=== PATIENT | male | born 1995 | race Two or more races ===

== ENCOUNTER 2025-08-11 16:20 | Emergency (ER) | payer BC, SELFPAY ==
[2025-08-11 16:21] VITALS: BMI 28.8
[2025-08-11 17:19] VITALS: BP 161/95; PULSE 49; RESP 17; TEMP 36.8; O2SAT 99
--- NOTE | 2025-08-11 17:36 | PD.EDRME ---
Rapid Medical Screening Exam E Arrival date/time: 08/11/25 16:20 This is a 29-year-old male who comes into the emergency room with complaints of nausea, vomiting and abdominal pain that started yesterday. Patient states that he eventually got food yesterday and since then he has been vomiting and having epigastric pain. Patient denies alcohol or drug use. Patient reports history of GERD I have greeted and performed a focused initial assessment of this patient. Initial appropriate labs ordered at this time. A comprehensive ED assessment and evaluation of the patient and analysis of all test and completion of medical decision making process will be conducted by additional ED provider. Chief Complaint: Abdominal Pain Time Seen by Provider: 08/11/25 17:30 Vital signs: Vital Signs Temperature 98.3 F 08/11/25 17:19 Pulse Rate 49 L 08/11/25 17:19 Respiratory Rate 17 08/11/25 17:19 Blood Pressure 161/95 H 08/11/25 17:19 Pulse Oximetry (%) 99 08/11/25 17:19 Oxygen Delivery Method Room Air 08/11/25 17:19
[2025-08-11] MEDS: ONDANSETRON ODT 4 MG TABRAP PO (17:46)
[2025-08-11 18:02] LABS: Basophils # (Auto) 0.0 Thou/mm3 (0.0-0.2); Basophils % (Auto) 0 % (0-2.5); Eosinophils # (Auto) 0.0 Thou/mm3 (0.0-0.5); Eosinophils % (Auto) 0 % (0-10); Hematocrit 49.1 % (41.0-53.0); Hemoglobin 16.0 g/dL (13.5-16.0); Immature Granulocytes Auto 0.07 Thou/mm3 (0.00-0.00); Lymphocytes # (Auto) 1.4 Thou/mm3 (1.0-4.8); Lymphocytes % (Auto) 7 % (10-50); Mean Corpuscular HGB Conc 32.6 g/dl (31.0-37.0); Mean Corpuscular Hemoglobin 26.4 pg (25.0-35.0); Mean Corpuscular Volume 81 fL (80-100); Monocytes # (Auto) 1.2 Thou/mm3 (0.0-0.8); Monocytes % (Auto) 6 % (0-12); Neutrophils # (Auto) 17.2 Thou/mm3 (1.8-7.7); Neutrophils % (Auto) 87 % (37-80); Nucleated Red Blood Cell # 0.00 Thou/mm3 (0.00-0.00); Nucleated Red Blood Cell % 0 /100 WBC (0); Platelet Count 252 Thou/mm3 (140-440); RDW Standard Deviation 38.0 fL (35.1-43.9); Red Blood Count 6.07 Miln/mm3 (4.50-5.90); White Blood Count 19.9 Thou/mm3 (3.8-10.6)
[2025-08-11 18:29] LABS: Alanine Aminotransferase 553 U/L (10-49); Albumin, Serum 5.2 gm/dL (3.5-5.0); Albumin/Globulin Ratio 1.6 (1.2-2.2); Alkaline Phosphatase 83 U/L (46-116); Anion Gap 11 (7-16); Aspartate Amino Transferase 301 U/L (0-34); BUN/Creatinine Ratio 7 Ratio (12-20); Bilirubin,Total 3.5 mg/dL (0.3-1.2); Blood Urea Nitrogen 8 mg/dL (9-23); Calcium 11.1 mg/dL (8.3-10.6); Calcium (Corrected) 11.1 mg/dL (8.5-10.1); Carbon Dioxide 30.0 mMol/L (20.0-31.0); Chloride 98 mMol/L (98-107); Creatinine (Component) 1.1 mg/dL (0.6-1.3); Estimated Creatinine Clearance 103.9 mL/min (>60); Globulin 3.2 gm/dL (2.3-3.5); Glucose 173 mg/dL (74-106); Lipase 2815 U/L (12-53); Osmolality,Calculated 279 (275-295); Potassium 3.6 mMol/L (3.4-5.1); Sodium 139 mMol/L (136-145); Total Protein 8.4 gm/dL (5.7-8.2); eGFR > 60 See Note
[2025-08-11 18:35] LABS: Collection Type, Urine Voided; Squamous Epithelial Cell,Urine 0 /hpf (0-5)
[2025-08-11 18:49] LABS: Amphetamine/Methamp Scrn,U Negative (Negative); Barbiturate Screen,Urine Negative (Negative); Benzodiazepines Screen,Urine Negative (Negative); Benzoylecgonine Screen, Ur Negative (Negative); Fentanyl Screen,Urine Negative (Negative); Opiate Screen,Urine Negative (Negative); THC Screen,Urine Negative (Negative)
[2025-08-11 18:53] LABS: Bilirubin,Urine 1+ (Negative); Blood,Urine 1+ (Negative); Clarity,Urine Clear (Clear/Hazy); Color,Urine Yellow (Lt Yel-Yel); Culture Indicated,Urine Not Indicated; Glucose, Urine Negative (Negative); Ketones,Urine Negative (Negative); Leukocyte Esterase,Urine Negative (Negative); Nitrite,Urine Negative (Negative); PH,Urine 5.5 (5.0-7.0); Protein,Urine Negative (Neg - Trace); RBC,Urine 10 /hpf (0-3); Specific Gravity,Urine 1.012 (1.001-1.035); Urobilinogen,Urine Negative mg/dL (0.0-1.0); WBC,Urine < 1 /hpf (0-5)
--- NOTE | 2025-08-11 20:19 | PD.EDABDPN ---
ED Abdominal Pain RME/HPI General Chief Complaint: Abdominal Pain Stated complaint: EPIGASTRIC PAIN X1 DAY WITH N/V Time seen by provider: 08/11/25 17:30 Arrival date/time: 08/11/25 16:20 Limitations: no limitations RME / HPI RME / HPI narrative: 08/11/25 16:20 This is a 29-year-old male who comes into the emergency room with complaints of nausea, vomiting and abdominal pain that started yesterday. Patient states that he eventually got food yesterday and since then he has been vomiting and having epigastric pain. Patient denies alcohol or drug use. Patient reports history of GERD I have greeted and performed a focused initial assessment of this patient. Initial appropriate labs ordered at this time. A comprehensive ED assessment and evaluation of the patient and analysis of all test and completion of medical decision making process will be conducted by additional ED provider. Dr. Lawson evaluation: Patient is a 29-year-old male is in the emergency department with concerns for epigastric pain nausea vomiting. Patient denies fevers however does feel warm. States that over the last few weeks she has had epigastric pain has been taking famotidine at home that has improved the symptoms. Yesterday went to [place], had a lot of greasy food and dairy had significant abdominal pain nausea and vomiting did not improve intake came to the emerged permit. Patient does not any medical problems does not take any medications other than famotidine, no allergies to medications, no drugs no alcohol no smoking, no diarrhea, no melena no hematochezia. No surgeries to his belly. Related Data Allergies Allergy/AdvReac Type Severity Reaction Status Date / Time No Known Allergies Allergy Verified 08/11/25 16:23 ED Exam General Limitations: Present no limitations Head Head exam: Present atraumatic and normocephalic Eye Eye exam: Present normal appearance and PERRL ENT ENT exam: Present normal exam Neck Neck exam: Present normal inspection Chest Chest inspection: Present normal inspection and symmetric chest wall rise Respiratory Respiratory exam: Present normal lung sounds bilaterally Cardiovascular Cardiovascular exam: Present regular rate Abdominal Exam Abdominal exam: Present soft and tenderness (Tenderness palpation in the epigastrium); Absent guarding, rebound or rigidity Extremities Exam Extremities exam: Present normal inspection and full ROM Back Exam Back exam: Present normal inspection; Absent CVA tenderness (R) or CVA tenderness (L) Neurological Exam Neurological exam: Present alert, oriented X3 and CN II-XII intact Psychiatric Psychiatric exam: Present normal affect and normal mood Skin Skin exam: Present warm, dry and intact Course Quality Measures none Orders Category Date Time Status CT Screening NOW Care 08/11/25 20:[address] abdomen pelvis w con Stat Exams 08/11/25 20:20 Completed US abdomen limited Stat Exams 08/11/25 20:20 Completed Blood Culture (Lab) Stat Lab 08/11/25 22:11 Received CBC Stat Lab 08/11/25 17:50 Completed CMP [Comprehensive Metabolic Panel] Stat Lab 08/11/25 22:23 Received Comprehensive Metabolic Panel Stat Lab 08/11/25 17:50 Completed Drug Screen,Urine Stat Lab 08/11/25 18:11 Completed Lipase Stat Lab 08/11/25 17:50 Completed Lipase Stat Lab 08/11/25 22:23 Received Urinalysis, C/S if Indicated Stat Lab 08/11/25 18:11 Completed Ketorolac Inj [Toradol Inj] Med 08/11/25 20:31 Discontinued 15 mg IVP X1 ONE Morphine* Inj Med 08/11/25 22:29 Discontinued 4 mg IVP STAT STA Ondansetron Odt [Zofran Odt] Med 08/11/25 17:35 Discontinued 4 mg PO X1 ONE Ringers Lactated 1000 ml [Lactated Ringers] 1,000 ml Med 08/11/25 20:22 Discontinued IV 999 mls/hr Ringers Lactated 1000 ml [Lactated Ringers] 1,000 ml Med 08/11/25 22:05 Active IV 999 mls/hr cefTRIAXone/D5w 1gm IV premix [Rocephin/D5w 1gm IV Med 08/11/25 21:20 Discontinued premix] 1 gm in 50 ml IV STAT metroNIDAZOLE/NS 500 MG IVPB [Flagyl 500 mg IV] Med 08/11/25 21:20 Discontinued 500 mg in 100 ml IV STAT Vital Signs Vital signs: Vital Signs Temperature 98.3 F 08/11/25 17:19 Pulse Rate 49 L 08/11/25 17:19 Respiratory Rate 17 08/11/25 17:19 Blood Pressure 161/95 H 08/11/25 17:19 Pulse Oximetry (%) 99 08/11/25 17:19 Oxygen Delivery Method Room Air 08/11/25 17:19 Abdominal Pain MDM MDM Narrative MDM Narrative:: Patient is a 29-year-old male seen emerged from concerns for nausea vomiting and epigastric pain. Vital signs and exam as listed. Prior provider evaluated patient. Ordered labs offered medication for symptom relief. Labs with evidence of leukocytosis 19.9, left shift of 87%. Hemoglobin 16. No acute electrolyte abnormalities, normal kidney function. Patient with hypercalcemia 11.1. Will provide patient with fluids. T. bili is 3.5, do not have a prior for comparison. Patient with a transaminitis, AST 301, ALT 553. Alk phos normal. Patient with lipase 2815. Urinalysis with 10 RBCs, less than 1 white blood cell, leuk esterase negative nitrite negative. Drug screen negative. Given patient with abdominal pain, transaminitis, ordered right upper quadrant ultrasound as well as CT abdomen pelvis with contrast. Patient is NPO. I did provide patient with broad-spectrum antibiotics On my evaluation patient GCS 15, not in distress however has epigastric abdominal pain, no rebound or guarding. 10:45p patient with persistent abdominal pain, provided additional fluids as well as medication for pain relief. 10:50p discussed case with on-call director of teenage activities Dr. Esparza, recommends that patient get an MRCP to confirm the patient does not have a gallstone causing obstruction of being patient's pancreas. Will initiate transfer for GI with ERCP capabilities. Patient signed out to oncoming provider pending transfer. Patient data External records reviewed:: None Clinical information provided by:: patient Social determinants that could affect healthcare access:: none Patient has the following chronic illnesses:: None How is presenting disease/condition affected by chronic disease/condition?: no chronic disease Evaluation data The following diagnostics were reviewed and interpreted by me:: lab results and radiology exam(s) Lab and/or radiology exams considered but not ordered:: None Interpretation Summary: See MDM Medications / Prescriptions Medications or Prescriptions considered but not ordered:: None Medication administrations:: Medication Administration History Lactated Ringer's (Lactated Ringers) 1,000 mls @ 999 mls/hr IV .Q1H1M ONE Stop: 08/11/25 23:05 Last Admin: 08/11/25 22:16 Dose: 999 mls/hr Documented By: BD Discontinued Medications Lactated Ringer's (Lactated Ringers) 1,000 mls @ 999 mls/hr IV .Q1H1M ONE Stop: 08/11/25 21:22 Last Infusion: 08/11/25 22:22 Dose: Infused Documented By: Admin: 08/11/25 20:36 Dose: 999 mls/hr Documented By: CCT Ceftriaxone Sodium/Dextrose (Rocephin/D5w 1gm Iv Premix) 1 gm in 50 mls @ 100 mls/hr IV STAT STA Stop: 08/11/25 21:49 Last Admin: 08/11/25 22:15 Dose: 100 mls/hr Documented By: BD Metronidazole (Flagyl 500 Mg Iv) 500 mg in 100 mls @ 200 mls/hr IV STAT STA Stop: 08/11/25 21:49 Last Admin: 08/11/25 22:41 Dose: 200 mls/hr Documented By: BD Ketorolac Tromethamine (Ketorolac Inj 30 Mg/Ml Vial) 15 mg IVP X1 ONE Stop: 08/11/25 20:32 Last Admin: 08/11/25 20:40 Dose: 15 mg Documented By: CCT Morphine Sulfate (Morphine Sulf Inj 4 Mg/Ml Vial) 4 mg IVP STAT STA Stop: 08/11/25 22:30 Last Admin: 08/11/25 22:36 Dose: 4 mg Documented By: BD Ondansetron HCl (Ondansetron Odt 4 Mg Tabrap) 4 mg PO X1 ONE; Protocol Stop: 08/11/25 17:36 Last Admin: 08/11/25 17:46 Dose: 4 mg Documented By: OA See above Consultations Consultation(s) initiated? (list below): Yes Diagnosis Differential diagnosis abdominal pain: other Most likely diagnosis given after review of the tests above:: Hyperbilirubinemia, transaminitis, pancreatitis, hypercalcemia, epigastric pain Admission Indicated Admission indicated?: not indicated (Transfer) Admission Request Was there a request for admission?: No Disposition Plan Disposition Plan: Transfer Discharge Plan Prescriptions/Referrals Referrals: No Primary/Family,Physician [Primary Care Provider] - In 1 week Problem List Clinical Impression: Pancreatitis Patient/Caregiver Discharge Instructions Print Language: Bhutanese
--- NOTE | 2025-08-11 20:20 | XR_ITS ---
Examination: CT abdomen with intravenous contrast CT pelvis with intravenous contrast 2-D coronal reconstructions 2-D sagittal reconstructions Date and time of exam: August 11, 2025, 2123 hours INDICATIONS: Epigastric pain nausea vomiting beginning today. CTDI: vol (mGy) 7.92 DLP: (mGycm) 478 Technique: Multiple axial sections of the abdomen and pelvis have been obtained. 64 slice high-resolution scanner used. 3 mm axial sections have been obtained, post intravenous injection 60 cc [id number] 2-D sagittal, coronal reconstructions obtained. Low dose protocols were performed. One or more of the following dose reduction techniques were used; automated exposure control, adjustment of the mA and/or KV according to patient size, use of iterative reconstruction technique. Findings: Thickening of the gastric mucosa No renal or ureteral calculi No gallstones No common bile duct stones Prominent pancreatitis No renal or ureteral calculi, no hydronephrosis Normal appendix No bowel obstruction Mild free fluid in the pelvis Normal prostate Normal urinary bladder The osseous structures are intact IMPRESSION: Gastritis pattern Significant acute pancreatitis, no pseudocyst
--- NOTE | 2025-08-11 20:20 | XR_ITS ---
Examination: Abdomen sonogram, Limited Date and time of exam: August 11, 2025, 2130 hours INDICATIONS: Onset of right upper abdominal pain beginning yesterday Technique: Real-time lou scale transabdominal sonographic images of the upper abdomen obtained. Findings: Multiple gallstones Gallbladder wall 0.39 cm no edema Common bile duct 0.3 cm Pancreatic head 2.1 cm Liver 15.0 cm no liver lesions Normal hepatopetal portal venous flow Patent IVC IMPRESSION: Cholelithiasis Thickening of the gallbladder wall consider HIDA scan or MRCP follow-up to exclude cholecystitis
[2025-08-11] MEDS: RINGERS LACTATED 1000 ML 1,000 ML 999 ML IV ×2 (20:36→22:16)
[2025-08-11] MEDS: KETOROLAC INJ 30 MG/ML VIAL 15 MG IVP ×2 (20:40→23:26)
[2025-08-11 20:50] VITALS: BP 165/83; PULSE 47; RESP 16; TEMP 36.9; O2SAT 96
[2025-08-11] MEDS: cefTRIAXone/D5w 1gm IV premix 1 GM/50 ML BAG IV (22:15)
[2025-08-11] MEDS: MORPHINE SULF INJ 4 MG/ML VIAL IVP (22:36)
[2025-08-11] MEDS: metroNIDAZOLE/NS 500 MG IVPB 500 MG/100 ML BAG 200 MG IV (22:41)
[2025-08-11 22:57] LABS: Alanine Aminotransferase 489 U/L (10-49); Albumin, Serum 4.8 gm/dL (3.5-5.0); Albumin/Globulin Ratio 1.6 (1.2-2.2); Alkaline Phosphatase 77 U/L (46-116); Anion Gap 10 (7-16); Aspartate Amino Transferase 230 U/L (0-34); BUN/Creatinine Ratio 7 Ratio (12-20); Bilirubin,Total 2.0 mg/dL (0.3-1.2); Blood Urea Nitrogen 7 mg/dL (9-23); Calcium 10.2 mg/dL (8.3-10.6); Calcium (Corrected) 10.2 mg/dL (8.5-10.1); Carbon Dioxide 30.0 mMol/L (20.0-31.0); Chloride 97 mMol/L (98-107); Creatinine (Component) 1.0 mg/dL (0.6-1.3); Estimated Creatinine Clearance 114.3 mL/min (>60); Globulin 3.0 gm/dL (2.3-3.5); Glucose 153 mg/dL (74-106); Lipase 1458 U/L (12-53); Osmolality,Calculated 274 (275-295); Potassium 3.9 mMol/L (3.4-5.1); Sodium 137 mMol/L (136-145); Total Protein 7.8 gm/dL (5.7-8.2); eGFR > 60 See Note
[2025-08-11 23:00] VITALS: BP 173/93; PULSE 52; RESP 16; TEMP 36.9; O2SAT 95
--- NOTE | 2025-08-11 23:00 | PC.NURSE ---
[facility] CONTACTED TO INITIATE TRANSFER FOR MRCP/ERCP. CLINICALS SENT
--- NOTE | 2025-08-11 23:05 | PD.EDADDENDU ---
Emergency Room Addendum <Vale Isidro - Last Filed: 08/11/25 23:58> Addendum Narrative: I took over the care from previous shift physician at 11 PM on 08/11/2025. See previous notes for complete H & P and ED course. I reviewed all diagnostic test results. My review of the Abdomen/Pelvis CT report is Gastritis pattern. Significant acute pancreatitis, no pseudocyst. My review of the Abdomen US report is Cholelithiasis. Thickening of the gallbladder wall consider HIDA scan or MRCP follow-up to exclude cholecystitis. Blood tests and urine tests Diagnoses include: Pancreatitis Cholelithiasis LFT Elevation Treatment here included Dilaudid 1 mg Toradol 15 mg 23:23 - I discussed the case with Angeilne Albright. About the presentation and exam and diagnostics and treatments here. And need of further care in their hospital. Dr. Enriquez will accept the patient for transfer. 00:00 - Patient transferred to [facility] by EMS. Terrell Holm MD <Terrell Holm MD - Last Filed: 08/12/25 01:36> Addendum Narrative: I took over the care from previous shift physician, Dr. Lawson, at 11 PM on 08/11/2025. See previous notes for complete H & P and ED course. I reviewed all diagnostic test results. Diagnoses include: Pancreatitis Cholelithiasis LFT Elevation 23:23 - I discussed the case with Angeline (Dr. Enriquez). About the presentation and exam and diagnostics and treatments here. And need of further care there. Agreed to accept the patient for transfer. 00:00 - Patient transferred to [facility] by EMS. During my watch, the patient remained stable. Terrell Holm MD
--- NOTE | 2025-08-11 23:25 | PC.NURSE ---
[id number], ACCEPTED TO [facility] BY , ER TO ER, REPORT TO #[id number], SPOKE TO ONOFRE
[2025-08-11] MEDS: ONDANSETRON INJ 2 MG/ML INJ 2 ML 4 MG IVP (23:26)
[2025-08-11] MEDS: HYDROmorphone INJ 2 MG/ML VIAL 1 MG IVP (23:27)
== END 2025-08-12 00:08 | disposition short-term general hospital (02) ==
PROVIDERS: Emergency Medicine; Nurse Practitioner Family; Emergency Provider Emergency Medicine
DX: K85.90 Acute pancreatitis without necrosis or infection, unspecified (principal)
CPT/HCPCS: 36415; 74177; 76705; 80053; 80307; 81001; 83690; 85025; 87040; 96361; 96365; 96375; 96376; 99283; A4649; J0696; J1171; J1885; J2270; J2405; J3490; J7120; Q0162; Q9967; J1836